=== PATIENT | male | born 2005 | race Caucasian/White ===

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

== ENCOUNTER 2023-03-25 17:36 | Emergency (ER) | payer MEDICAID, SELFPAY ==
[2023-03-25 17:40] VITALS: BP 140/78; PULSE 85; RESP 16; TEMP 36.6; O2SAT 99; BMI 23.5
[2023-03-25 17:52] VITALS: BP 144/67; PULSE 91; O2SAT 98
--- NOTE | 2023-03-25 18:19 | ED.VIS.CHEST ---
HPI History of Present Illness Chief Complaint: Chest Pain Narrative Narrative: 18-year-old male past medical history of bilateral central vision loss, legally blind, presents with left-sided chest pain that he has had over the last few days. He states his symptoms began on Friday, and were intermittent. It ranges from sharp and stabbing pain to dull and achy. Was present on Friday, Friday it may have been worse, and yesterday he states he was possibly pain-free, but today, began having constant, pleuritic chest pain on the left. It is nonradiating. He denies any tearing sensation or radiation to his back, jaw, or neck, or left arm. He denies any nausea or vomiting. No shortness of breath or diaphoresis. He denies DVT or PE risk factors. [facility] Medical History (Updated 03/25/23 @ 21:05 by Mendel Mason MD) Asthma Stargardts disease Home Medications albuterol sulfate 90 mcg/actuation aerosol inhaler (Proventil HFA) 2 puff inhalation Q6H 03/05/19 [History Last Taken Unknown] cetirizine 10 mg tablet (Zyrtec) 10 mg PO DAILY 03/05/19 [History Last Taken Unknown] diclofenac sodium 1 % topical gel (Voltaren) 4 g topical .QID PRN pain #100 grams 09/06/19 [Rx Last Taken Unknown] Allergy/AdvReac Type Severity Reaction Status Date / Time No Known Allergies Allergy Verified 03/25/23 17:37 Social History (Updated 05/28/19 @ 11:[address] Rodney Viveros, ) Smoking Status: Never smoker ROS ROS ED ROS Narrative Constitutional: No fever, no chills. HEENT: No sore throat. No neck pain. No loss of vision. No rhinorrhea. Cardiovascular: Left-sided pleuritic chest pain. No palpitations. No pedal edema. Respiratory: No cough, no shortness of breath. Abdominal: No abdominal pain. No nausea. No vomiting. Genitourinary: No dysuria. No hematuria. Musculoskeletal: No myalgias. No arthralgias. Neurologic: No headaches. No dizziness. No lightheadedness. Skin: No rash. No change in color. Psychiatric: No depression. No anxiety. EXAM Physical Exam Narrative Exam Narrative: Afebrile. Vital signs noted. HEENT: Normocephalic. Atraumatic. PERRL, EOMI. Neck soft and supple. No point tenderness or step off. Cardiovascular: Regular rate and rhythm. No murmurs, rubs, or gallops appreciated. No reproducible chest pain, no crepitance. Respiratory: No tachypnea. Lungs clear to auscultation bilaterally. Gastrointestinal: Abdomen soft, nontender, with normoactive bowel sounds. No rebound or guarding. Neurological: Awake. Alert. Nonfocal, nonlateralizing. Skin: No rash. Normal color. No pallor. Musculoskeletal: No pedal edema. Full range of motion extremities. Const Vital Signs: 03/25/23 17:40 03/25/23 17:52 03/25/23 18:31 Temperature 98 F Temperature Source Temporal Pulse Rate 85 91 Respiratory Rate 16 Blood Pressure 140/78 H 144/67 H Blood Pressure Mean 98 92 Pulse Ox 99 98 Oxygen Delivery Method Room Air Room Air Room Air 03/25/23 19:41 03/25/23 21:02 Temperature Temperature Source Pulse Rate 82 81 Respiratory Rate 17 20 H Blood Pressure 147/84 H 125/80 H Blood Pressure Mean 105 95 Pulse Ox 98 96 Oxygen Delivery Method Room Air Room Air Heart Score History: Slightly/Non-Suspicious ECG: Normal Age: </= 45 years Risk Factors: No Risk Factors Score: 0 MDM MDM MDM Narrative Medical decision making narrative: In the differential diagnosis is ACS versus pulmonary embolism versus aortic dissection. I have low suspicion for aortic dissection as he has no radiation to his back, he has equal pulses that are palpated, no tearing sensation. I will obtain an EKG to help rule out acute coronary syndrome/STEMI. Serial troponins will be performed along with chest x-ray to rule out pneumothorax and/or widened mediastinum. I have lower suspicion for pulmonary embolism as he is not hypoxic or tachycardic and he denies any DVT or PE risk factors. He is very active. I will obtain a D-dimer to screen him. I reviewed his prior ED visit and he did have chest pain of unknown etiology in 2019, few years ago. WBC count is normal at 10.7 in review of his laboratory work. He has normal hemoglobin of 15.5, platelet count normal at 361. D-dimer is negative at less than 0.27, electrolyte panel is grossly unremarkable. High-sensitivity troponin is 6. Repeat serial biomarker increased to 7 for a delta of 1. Chest x-ray interpreted by myself shows no acute process, no pneumothorax or infiltrate. I reviewed the radiology report which confirms my independent interpretation. At this point in time, while I am unsure as to the cause of his chest pain and pleuritic pain, I feel he can be discharged safely home with follow-up to his primary care provider. He was told to rest for the next few days and not exercise or lift weights. Return instructions to the emergency department were reviewed. I do not feel he requires observation. Disposition is discharged home in stable condition. History & Record Review Discussion w/independent historian: Patient and Family Additional record(s) reviewed:: Prior ED visit Lab Data Attestation: I reviewed the patient's lab results. Labs: Laboratory Results - last 24 hr 03/25/23 03/25/23 03/25/23 17:50 17:50 17:50 WBC 10.7 RBC 5.05 Hgb 15.5 Hct 46.8 MCV 92.7 MCH 30.7 MCHC 33.1 RDW Std Deviation 42.8 RDW Coeff of Venessa 12.6 Plt Count 361 MPV 10.4 Immature Gran % (Auto) 0.400 Neut % (Auto) 70.1 H Lymph % (Auto) 18.7 L [place] % (Auto) 9.0 Eos % (Auto) 1.4 Baso % (Auto) 0.4 Absolute Neuts (auto) 7.5 Absolute Lymphs (auto) 1.99 Nucleated RBC % 0 D-Dimer Quant (PE/DVT) < 0.27 L Sodium 141 Potassium 3.9 Chloride 107 Carbon Dioxide 28.0 Anion Gap 6 BUN 18 Creatinine 1.08 Estim Creat Clear Calc 116.20 Est GFR (MDRD) Af Amer 112 Est GFR (MDRD) Non-Af 93 BUN/Creatinine Ratio 16.7 Glucose 90 Calcium 9.5 Troponin I High Sens 6 03/25/23 20:00 WBC RBC Hgb Hct MCV MCH MCHC RDW Std Deviation RDW Coeff of Venessa Plt Count MPV Immature Gran % (Auto) Neut % (Auto) Lymph % (Auto) [place] % (Auto) Eos % (Auto) Baso % (Auto) Absolute Neuts (auto) Absolute Lymphs (auto) Nucleated RBC % D-Dimer Quant (PE/DVT) Sodium Potassium Chloride Carbon Dioxide Anion Gap BUN Creatinine Estim Creat Clear Calc Est GFR (MDRD) Af Amer Est GFR (MDRD) Non-Af BUN/Creatinine Ratio Glucose Calcium Troponin I High Sens 7 Radiography Diagnostic Testing: Clinical Impression(s) from Imaging Studies Chest X-Ray 03/25/23 18:39 IMPRESSION: No radiographic evidence of acute cardiopulmonary disease. Electronically Signed: Aroldo Echavarria MD at 18:52 EDT , Discharge Plan Triage Chief Complaint: Chest Pain ED Provider: Mendel Mason Dx/Rx/DC Orders Clinical Impression: Chest pain of unknown etiology, Pleuritic pain Instructions: ED Chest Pain, Uncertain Cause Prescriptions: No Action cetirizine [Zyrtec] 10 mg tablet 10 mg PO DAILY albuterol sulfate [Proventil HFA] 90 mcg/actuation HFA aerosol inhaler 2 puff INHALATION Q6H diclofenac sodium [Voltaren] 1 % gel 4 g TOPICAL .QID PRN (Reason: pain) Qty: 100 0RF Rx Instructions: Apply 4 g to the affected area 4 times daily as needed pain Primary Care Provider: Kwan Trinidad Referrals: Denisse Brenner MD [Non-Staff] - 3-5 Days if not improving Disposition Disposition: Home, Self Care
[2023-03-25] MEDS: Aspirin 81 MG TAB.CHEW 324 MG PO (18:31)
[2023-03-25] MEDS: 0.9% Normal Saline 1,000 ML 1000 ML IV (18:37)
--- NOTE | 2023-03-25 18:39 | RAD_ITS ---
INDICATION: Chest pain EXAMINATION/TECHNIQUE: X-RAY - XR Chest 1 View COMPARISON: 03/06/2019 FINDINGS: LUNGS: No consolidation, edema or effusion. No pneumothorax. MEDIASTINUM AND CARDIOVASCULAR STRUCTURES: Cardiac silhouette not enlarged. Central airways and mediastinal contour are unremarkable. RAD/Chest 1 View (Portable) IMPRESSION: No radiographic evidence of acute cardiopulmonary disease. Electronically Signed: Aroldo Echavarria MD at 18:52 EDT ,
[2023-03-25 18:47] LABS: Absolute Lymphocyte Count 1.99 X10^3/uL (0.83-4.51); Absolute Neutrophil Count 7.5 X10^3/uL (2.0-7.7); Basophil# 0.04 X10^3/uL; Basophil% 0.4 % (0-1); Eosinophil# 0.15 X10^3/uL; Eosinophils% 1.4 % (0-5); Hematocrit 46.8 % (40-54); Hemoglobin 15.5 g/dL (13.0-16.5); Lymphocyte # 1.99 X10^3/ul (0.83-4.51); Lymphocyte % 18.7 % (19-41); Mean Corp Hgb Conc 33.1 g/dL (32-36); Mean Corpuscular Hgb 30.7 pg (27.0-32.0); Mean Corpuscular Volume 92.7 fL (80-94); Mean Platelet Vol. 10.4 fl (6.2-12.0); Monocyte# 0.96 X10^3/uL; NRBC Flagged by Analyzer 0 % (0-5); Neutrophil # 7.49 X10^3/uL (2.7-7.7); Neutrophil % 70.1 % (47-70); Platelet Count 361 K/mm3 (150-450); RBC Distribution Width CV 12.6 % (11.6-14.6); RBC Distribution Width SD 42.8 fl (35.1-43.9); Red Blood Count 5.05 M/mm3 (4.6-6.2); White Blood Count 10.7 K/mm3 (4.4-11.0)
[2023-03-25 19:06] LABS: Anion Gap 6 (5-15); BUN 18 mg/dL (7-18); BUN/Creat Ratio 16.7 RATIO (10-20); Calcium,Total 9.5 mg/dL (8.5-10.1); Chloride 107 mmol/L (98-107); Creatinine, Serum 1.08 mg/dL (0.70-1.30); EST Glomerular Filtration Rate 93 mL/min (>60); Est Glom Filt Rate - Afr Amer 112 mL/min (>60); Glucose 90 mg/dL (74-106); Potassium 3.9 mmol/L (3.5-5.1); Sodium Level 141 mmol/L (136-145); Troponin-I HS (w/2H Reflex) 6 pg/mL (3.0-78.0)
[2023-03-25 19:23] LABS: D-Dimer Quantitative (DVT/PE) < 0.27 FEU/ug/m (0.27-0.49)
[2023-03-25 19:41] VITALS: BP 147/84; PULSE 82; RESP 17; O2SAT 98
[2023-03-25 20:25] LABS: Reflex Troponin-HS? (from REC) Y
[2023-03-25 20:46] LABS: Troponin-I HS 7 pg/mL (3.0-78.0)
[2023-03-25 21:02] VITALS: BP 125/80; PULSE 81; RESP 20; O2SAT 96
== END 2023-03-25 21:29 | disposition home or self-care (01) ==
PROVIDERS: Emergency Provider Emergency Medicine; PCP Pediatrics; Visit Provider Emergency Medicine
DX: R07.81 Pleurodynia (principal); J45.909 Unspecified asthma, uncomplicated; Z79.899 Other long term (current) drug therapy
CPT/HCPCS: 71045; 80048; 84484; 85025; 85379; 93005; 96360; 96361; 99283; J7030; A4216

== ENCOUNTER 2023-06-10 07:45 | Outpatient (RCR) | payer MEDICAID, SELFPAY ==
--- NOTE | 2023-06-10 08:55 | HP.PTEVAL_ITS ---
Patient's Visit Information Visit Information Visit Information: ANTONIETTA HUNG is a 18 year old M referred to Physical Therapy by DHARMESH Em with a diagnosis of Lumbar spine pain w/o sciatica and L shoulder pain. Date of Evaluation: 06/10/23 Physical Therapist: Sundeep Borja DPT Visit Plan Frequency: 2x /Week Duration: 6 Weeks Plan: Start with upper lumbar mobilizations grade III/IV. Progress to neutral spine core stability and lumbar extensor strengthening. Progress to dynamic activities as tolerated. Subjective Subjective: Pt. is here today for his initial evaluation with diagnosis of low back pain without sciatica and L shoulder pain. He reports that his shoulder is now better, but his back is still bothering him. He reports no mech of injury. No history of back pain. He reports lifting does seem to make it worse. It feels like there is some rubbing in my back when I lie back to lifting. He tried to work through lifting, but has held off for a few weeks now. Sleeping is generally okay. Mornings are generally okay. Symptoms seem to be constant 2-3/10 range with intermittent increase in symptoms. No change in LE strength, no radicular symptoms. No saddle region pain. No xrays yet, but is planning to have them done some time this week. pt. works at [employer] and has some lifting and walks ~14 miles per day. He reports pain has been progressively getting worse over the past few months, but most prominent in the last month. Pt. would like to get back to all work and lifting activities without limitations. Pain L shoulder: Pain Intensity (Out of 10): 0 Lumbar spine: Pain Intensity (Out of 10): 2 Pain Intensity Range: 7 Comment: L side Objective Objective: POSTURE: pt. has fairly decent posture, no later shift noted. Pt. has no major increase in lordosis or loss. PALPATION: Pt. has most tenderness at L2/L3 region of lumbar spine. No major pain along erector spinae, but seem to be more central. Spring testing hypomobile throughout PAs L2-L5. Hypomobile with lateral glides as well. NEURO: Normal sensation and DTR of BLEs. ROM: LUMBAR SPINE: Pt. has full motion of lumbar spine, but is less mobile through upper lumbar spine and tends to get all of his extension throughout his lower lumbar spine. Pt. has normal B Hip ROM no increase in symptoms. Tight HS noted bilaterally. MMT: 5/5 strength throughout BLEs. Trunk: flexion 4+/5, extension 4+/5. GAIT: normal gait pattern noted. Special Tests L/S Slump test left side: Negative L/S Slump test right side: Negative L/S Left Straight Leg Raise: Negative L/S Right Straight Leg Raise: Negative L/S Instability PA Test: Negative L/S [place] Instability Test: Negative Lumbar Standing: Flexion - Mechanical Response: No effect Lumbar Standing: Flexion - Symptoms During Testing: No effect Lumbar Standing: Flexion - Symptoms After Testing: No effect Lumbar Standing: Extension - Mechanical Response: No effect Lumbar Standing: Extension - Symptoms During Testing: Increases Lumbar Standing: Extension - Symptoms After Testing: No worse Lumbar Standing: Right Side Glides - Mechanical Response: No effect Lumbar Standing: Right Side [place] - Symptoms During Testing: No effect Lumbar Standing: Right Side [place] - Symptoms After Testing: No effect Lumbar Standing: Left Side [place] - Mechanical Response: No effect Lumbar Standing: Left Side [place] - Symptoms During Testing: No effect Lumbar Standing: Left Side [place] - Symptoms After Testing: No effect Lumbar Lying: Flexion - Mechanical Response: No effect Lumbar Lying: Flexion - Symptoms During Testing: No effect Lumbar Lying: Flexion - Symptoms After Testing: No effect Lumbar Lying: Extension - Mechanical Response: No effect Lumbar Lying: Extension - Symptoms During Testing: Increases Lumbar Lying: Extension - Symptoms After Testing: No worse Lumbar Static: Slouched Sit - Mechanical Response: No effect Lumbar Static: Slouched Sit - Symptoms During Testing: No effect Lumbar Static: Slouched Sit - Symptoms After Testing: No effect Lumbar Static: Sitting Erect - Mechanical Response: No effect Lumbar Static: Sitting Erect - Symptoms During Testing: No effect Lumbar Static: Sitting Erect - Symptoms After Testing: No effect Lumbar Static:Lying Prone in Extension - Mechanical Response: No effect Lumbar Static: Lying Prone in Extension - Sx During Testing: Decreases Lumbar Static: Lying Prone in Extension - Sx After Testing: No better Balance/Special Test Scores Oswestry Low Back Score: 9 Goals Goal 1:: LTG: Pt. to be I with HEP for core stability. Goal Time Frame: 4-6 Weeks Goal 2:: STG: Pt. to have 0/10 pain in lumbar spine with all walking. Goal Time Frame: 2 Weeks Goal 3:: LTG: pt. to complete all work and recreational activities without increase in lumbar spine pain. Goal Time Frame: 4-6 Weeks Goal 4:: LTG: Pt. to have increased trunk flexion and extension strength to 5/5 throughout. Goal Time Frame: 4-6 Weeks Goal 5:: LTG: Pt. to have an improved back oswestry score to 0% diability. Goal Time Frame: 4-6 Weeks Rehabilitation Potential Physical Therapy Diagnosis: Pt. has signs and symptoms consistent with lumbar spine pain. His L shoulder pain has abolished. He has some loss of extension at upper lumbar spine, hypomobility noted with segmental extension in upper lumbar spine as well. He has tight HS contributing to slightly posterior pelvic tilted position (slightly). Pt. has some trunk flexion and extension weakness as well. He does report some rubbing, possible instability. Pt. would benefit from PT to increase core stability in order to get back to all work and recreational activities without limitations. Rehabilitation Potential: Excellent Anticipated Interventions Patient/Client Instruction: Educate patient on: Condition, Plan of Care, Risk Factors and Benefits of Fitness Program For the Purpose of:: To foster healthy habits, To improve decision making, To facilitate caregiver knowledge, To improve self management, To prevent re-injury and To improve ability to perform tasks related to life management Therapeutic Exercise to Include: Strength training, Power training, Postural training, Flexibilty training and Dynamic Lumbar Stabilization For the Purpose of:: To decrease pain, To increase ROM, To improve nutrient delivery to tissue, To increase oxygenation perfusion, To improve muscle performance and motor function, To improve ability to perform ADL's, To increase tolerance to activity/condition/position, To improve ability of physical actions for home/community/work/leisure, To improve gait and locomotor functions and To improve health of tissue Manual Therapy Techniques to Include: Mobilization For the Purpose of:: To increase ROM, To improve nutrient delivery to tissue, To increase oxygenation perfusion, To improve muscle performance and motor function, To improve health of tissue, To decrease soft tissue restriction and To increase flexibility/ROM Text: Thank you for the opportunity to evaluate your patient. For Medicare and Medicare HMO plans, please review the plan of care and approve it. It will need to be FAXED BACK to us at [phone] for Medicare purposes. For Medicare only, by signing this I certify the plan of care. Please let me know if there are questions or concerns regarding this plan of care. Physician Signature:_ Date:
== END 2023-06-10 19:00 | disposition home or self-care (01) ==
LOC: PT 07:45
PROVIDERS: PCP Pediatrics; Referring Provider Nurse Practitioner Family; Visit Provider Nurse Practitioner Family
DX: M54.50 Low back pain, unspecified (principal); M25.512 Pain in left shoulder
CPT/HCPCS: 97110; 97161

== ENCOUNTER → 2023-11-03 | Outpatient (CLI) | payer MEDICAID, SELFPAY ==
--- NOTE | 2023-11-03 12:47 | RAD_ITS ---
STUDY: X-RAY CHEST REASON FOR EXAM: Male, 18 years old. Chondrocostal junction syndrome [Tietze] TECHNIQUE: Frontal and lateral views of the chest. COMPARISON: March 25, 2023 FINDINGS: Lungs are hyperaerated. The lungs are clear and expanded. There is no demonstrated pleural abnormality. Normal size heart. Normal mediastinum and kostas. Normal visualized pulmonary arteries. Normal visualized aortic arch and descending thoracic aorta. Normal visualized thoracic spine. Normal visualized ribs, clavicles, and shoulders. There is no demonstrated abnormality of the visualized soft tissue structures of the upper abdomen. RAD/Chest PA and Lateral IMPRESSION: Probable small airways disease Electronically Signed: Ted Mcclure MD at 16:56 EST ,
== END | disposition home or self-care (01) ==
LOC: MTRAD 12:46
PROVIDERS: PCP Pediatrics; Referring Provider Pediatrics; Visit Provider Pediatrics
DX: M94.0 Chondrocostal junction syndrome [Tietze] (principal)
CPT/HCPCS: 71046

== ENCOUNTER 2024-01-02 08:30 | Outpatient (RCR) | payer MEDICAID, SELFPAY ==
--- NOTE | 2023-11-07 07:58 | HP.PTEVAL_ITS ---
Patient's Visit Information Visit Information Visit Information: ANTONIETTA HUNG is a 18 year old M referred to Physical Therapy by Dr. Kwan Trinidad MD with a diagnosis of REPETITIVE STRAIN OF LOWER BACK. Date of Evaluation: 11/07/23 Physical Therapist: Jose M Fleming PT, Cert MDT, OCS Visit Plan Frequency: 2x /Week Duration: 4 Weeks Plan: PT INTERVETIONS CONNOR EX'S FOR ROM,POSTURAL EX'S ,DLS AND FUNCTIONAL STRENGTHENING Subjective Subjective: This 18 y/o male presents to physical therapy with lumbar pain. Patient has had lumbar pain since May 2023. Seen Dr and recommend PT and had x- rays. Patient pain located symmetrical lumbar. Aggravating factors lifting ,sitting ,bending . Alleviating factors walking and standing. Denies paresthesia/tingling Bowel/bladder -.Coughing /sneezing -.Patient sleeping good. No medication . Patient has had PT for knees and one time lumbar. Patient condition affects QOL and Activities. Patient goals to decrease pain. VOCATION: umeployed SOCIAL: lives with family Pain Bilateral Back: Pain Intensity (Out of 10): 7 Pain Intensity Range: 10 Objective Objective: POSTURE: reduced lordosis ,rounded shoulders head forward NUERO: denies paresthesia/tingling ,reflexes L3-4.L4-5,L5-S1 2/3 FLEXABIITY: hamstrings mod tight MMT: quads/hams/hip/ankle 5/5 LUMBAR ROM: flexion mod loss ,extension min loss ,side glides min loss Special Tests L/S Slump test left side: Negative L/S Slump test right side: Negative L/S Left Straight Leg Raise: Negative L/S Right Straight Leg Raise: Negative Lumbar Standing: Flexion - Mechanical Response: No effect Lumbar Standing: Flexion - Symptoms During Testing: Increases Lumbar Standing: Flexion - Symptoms After Testing: Worse Lumbar Standing: Extension - Mechanical Response: No effect Lumbar Standing: Extension - Symptoms During Testing: Increases Lumbar Standing: Extension - Symptoms After Testing: No worse Lumbar Standing: Right Side Glides - Mechanical Response: No effect Lumbar Standing: Right Side [place] - Symptoms During Testing: No effect Lumbar Standing: Right Side [place] - Symptoms After Testing: No effect Lumbar Standing: Left Side [place] - Mechanical Response: No effect Lumbar Standing: Left Side [place] - Symptoms During Testing: No effect Lumbar Standing: Left Side [place] - Symptoms After Testing: No effect Lumbar Lying: Flexion - Mechanical Response: No effect Lumbar Lying: Flexion - Symptoms After Testing: No worse Lumbar Lying: Extension - Mechanical Response: No effect Lumbar Lying: Extension - Symptoms During Testing: Increases Lumbar Lying: Extension - Symptoms After Testing: No worse Balance/Special Test Scores Oswestry Low Back Score: 18 Goals Goal 1:: Patient to be I with HEP for back Goal Time Frame: 4-6 Weeks Goal 2:: Patient to improve posture/body mechanics 80% of the time Goal Time Frame: 4-6 Weeks Goal 3:: Patient to improve lumbar ROM for function of recovery for lifting Goal Time Frame: 4-6 Weeks Goal 4:: Patient to demonstrate 60% improvement with function and less pain Goal Time Frame: 4-6 Weeks Goal 5:: Patient to improve back oswestry score by 5 points to improve QOL and function Goal Time Frame: 4-6 Weeks Rehabilitation Potential Physical Therapy Diagnosis: This patient has low back pain with postural dysfunction with decrease ROM lumbar ,pain with positioning and motion testing thus benefit from skilled PT Rehabilitation Potential: Good Anticipated Interventions Patient/Client Instruction: Educate patient on: Condition and Plan of Care For the Purpose of:: To decrease pain, To increase ROM, To improve muscle performance and motor function, To improve ability to perform ADL's, To increase tolerance to activity/condition/position, To improve ability of physical actions for home/community/work/leisure, To improve health of tissue, To decrease soft tissue restriction, To increase flexibility/ROM and To improve tolerance to ADL's Therapeutic Exercise to Include: Strength training, Body mechanics, Postural training, Flexibilty training and Dynamic Lumbar Stabilization For the Purpose of:: To decrease pain, To increase ROM, To improve muscle performance and motor function, To increase tolerance to activity/condition/position, To improve ability of physical actions for home/community/work/leisure, To improve health of tissue, To decrease soft tissue restriction, To increase flexibility/ROM and To reduce risk of recurrence TENS: Yes IF ES: Yes Cryotherapy (ice pack, ice massage): Yes Thermo therapy (hot pack): Yes Ultrasound (thermal/non thermal): Yes For the Purpose of:: To decrease pain, To decrease swelling/inflammation, To increase ROM, To improve health of tissue and To decrease soft tissue restriction Text: Thank you for the opportunity to evaluate your patient. For Medicare and Medicare HMO plans, please review the plan of care and approve it. It will need to be FAXED BACK to us at [phone] for Medicare purposes. For Medicare only, by signing this I certify the plan of care. Please let me know if there are questions or concerns regarding this plan of care. Physician Signature: Date:
--- NOTE | 2024-01-02 08:55 | HP.PTDCSUM ---
Discharge Summary D/C summary: It has been my pleasure to treat ANTONIETTA HUNG referred by Dr. Kwan Trinidad MD, with the diagnosis of REPETITIVE STRAIN OF LOWER BACK for a total of 12 visit(s). Discharge Date: 01/02/24 Please see the following information for a summary of their discharge status. Subjective Subjective: Doing well ready for d/c Pain Bilateral Back: Pain Intensity (Out of 10): 0 Overall Improvement % Improvement: 80 Objective Objective/Function: reduced lordosis ,rounded shoulders head forward NUERO: denies paresthesia/tingling ,reflexes L3-4.L4-5,L5-S1 2/3 FLEXABIITY: hamstrings min tight MMT: quads/hams/hip/ankle 5/5 LUMBAR ROM: flexion WFL ,extension ,side glides WFL Goals Goal 1:: Patient to be I with HEP for back Goal Progress: Goal Met Goal 2:: Patient to improve posture/body mechanics 80% of the time Goal Progress: Goal Met Goal 3:: Patient to improve lumbar ROM for function of recovery for lifting Goal Progress: Goal Met Goal 4:: Patient to demonstrate 60% improvement with function and less pain Goal Progress: Goal Met Goal 5:: Patient to improve back oswestry score by 5 points to improve QOL and function Goal Progress: Goal Met Plan Plan: D/C D/C Information Discharge Comments: HEP d/c sentence: If there are questions or concerns regarding this patient's physical therapy, please feel free to call me at [phone]. Thank you for the referral of this patient. Sincerely, Jose M Fleming, PT, Cert MDT, OCS Balance/Gait/Functional tests Balance/Special Test Scores Oswestry Low Back Score: 3 Improvement % Improvement: 80
== END 2024-01-02 13:40 | disposition home or self-care (01) ==
LOC: PT 08:30
PROVIDERS: PCP Pediatrics; Referring Provider Pediatrics; Visit Provider Pediatrics
DX: S39.012D Strain of muscle, fascia and tendon of lower back, subsequent encounter (principal); X50.3XXD Overexertion from repetitive movements, subsequent encounter
CPT/HCPCS: 97110; 97162

== ENCOUNTER 2024-02-08 14:00 | Emergency (ER) | payer MEDICAID, SELFPAY ==
[2024-02-08 14:02] VITALS: BP 122/75; PULSE 96; RESP 14; TEMP 36.2; O2SAT 97; BMI 22.5
--- NOTE | 2024-02-08 14:27 | EX.ED.GENINJ ---
HPI <VIRGIE Blackman - Last Filed: 02/08/24 14:49> History of Present Illness Chief Complaint: Laceration Narrative Narrative: 19-year-old male was wearing sunglasses and playing basketball when he bumped heads with his brother. He has a left eyebrow laceration. No LOC. No blood thinners. He denies headache, visual changes, or nausea or vomiting. Tetanus is up-to-date. PFSH <VIRGIE Blackman - Last Filed: 02/08/24 14:49> [facility] Medical History (Updated 02/08/24 @ 14:30 by VIRGIE Blackman) Asthma Stargardts disease Home Medications albuterol sulfate 90 mcg/actuation aerosol inhaler (Proventil HFA) 2 puff inhalation Q6H 03/05/19 [History Last Taken Unknown] cetirizine 10 mg tablet (Zyrtec) 10 mg PO DAILY 03/05/19 [History Last Taken Unknown] diclofenac sodium 1 % topical gel (Voltaren) 4 g topical .QID PRN pain #100 grams 09/06/19 [Rx Last Taken Unknown] Allergy/AdvReac Type Severity Reaction Status Date / Time No Known Allergies Allergy Verified 02/08/24 14:02 Social History (Updated 05/28/19 @ 11:[address] Rodney Viveros, ) Smoking Status: Never smoker ROS <VIRGIE Blackman - Last Filed: 02/08/24 14:49> ROS ED ROS Narrative Eyes: Negative for visual change. GI: Negative for nausea, vomiting. Neuro: Negative for headache, motor/sensory dysfunction. Skin: Positive for wound. EXAM <VIRGIE Blackman - Last Filed: 02/08/24 14:49> Physical Exam Narrative Exam Narrative: CONST: Patient sitting in no acute distress. EYES: Normal inspection. PERRL, EOMI. ENT: 2.5 cm linear superficial laceration and left lateral eyebrow, no raccoon eyes or osullivan sign, no hemotympanum, no nasal septal hematoma, no CSF otorrhea or rhinorrhea. NECK: Normal inspection. RESP: No respiratory distress, CTAB. CVS: Regular rate and rhythm, no murmur, no gallop. SKIN: Color normal, no rash, warm, dry, intact. EXTREMITIES: Normal appearance, no pedal edema. NEURO: Oriented x4. PSYCH: Normal affect. Const Vital Signs: 02/08/24 14:02 Temperature 97.2 F L Temperature Source Temporal Pulse Rate 96 Respiratory Rate 14 Blood Pressure 122/75 H Blood Pressure Mean 90 Pulse Ox 97 Oxygen Delivery Method Room Air <Dr. Minerva Talavera DO - Last Filed: 02/08/24 15:09> Physical Exam Const Vital Signs: 02/08/24 14:02 Temperature 97.2 F L Temperature Source Temporal Pulse Rate 96 Respiratory Rate 14 Blood Pressure 122/75 H Blood Pressure Mean 90 Pulse Ox 97 Oxygen Delivery Method Room Air MDM <VIRGIE Blackman - Last Filed: 02/08/24 14:49> [facility] Narrative Medical decision making narrative: History gathered from: Patient and mom Patient bumped heads while playing basketball. There is a superficial 2.5 cm laceration in his left eyebrow. After thoroughly cleansing it it does not gape open and there is no active bleeding. There is no facial bony tenderness or signs of basilar skull fracture no indication for CT scan. Wound was cleansed and closed with skin glue. His tetanus is already up-to-date. He was given wound care instructions and discharged in stable condition. <Dr. Minerva Talavera, - Last Filed: 02/08/24 15:09> [facility] Narrative Medical decision making narrative: History gathered from: Patient and mom Patient bumped heads while playing basketball. There is a superficial 2.5 cm laceration in his left eyebrow. After thoroughly cleansing it it does not gape open and there is no active bleeding. There is no facial bony tenderness or signs of basilar skull fracture no indication for CT scan. Wound was cleansed and closed with skin glue. His tetanus is already up-to-date. He was given wound care instructions and discharged in stable condition. I have personally performed a face to face assessment of the patient and have reviewed the ANUSHA Note. I performed a substantive portion of the visit including all aspects of the following. My vee findings include: History is [patient presents with laceration to his left eyebrow. Patient states he was playing basketball with his brother when they collided heads. Patient was wearing glasses. He sustained a laceration to his eyebrow. His glasses did not break. He is up-to-date on tetanus. He denies any visual changes. There is no loss of consciousness. He denies neck pain.] Exam is [HEENT-PERRLA, EOMI. Cranial nerves II through XII grossly intact. TMs clear. Mucous membranes moist. No adenopathy. Patient with 2.5 cm laceration to his left eyebrow without significant bleeding. No real bony tenderness on or around his orbit. Extraocular muscle movement is normal and painless. Cardiovascular-regular rate and rhythm without murmur or ectopy Lungs-clear to auscultation, chest wall stable without crepitus or subcu emphysema Abdomen-normoactive bowel sounds, soft, nontender, no rebound or rigidity, no peritoneal signs. Extremities-intact ?4, normal range of motion, normal pulses, atraumatic] Medical Decison Making [patient was seen with physician virtual assistant for [employer]. I felt the laceration was amenable to Dermabond repair. PA performed procedure with Dermabond and had good wound edge approximation with good hemostasis. Advised to return if increasing pain, redness, swelling, purulent drainage, or condition should worsen anyway.] Other additions or changes: [None] Discharge Plan Triage Chief Complaint: Laceration ED Midlevel Provider: Jayashree Cole ED Provider: Minerva Talavera Dx/Rx/DC Orders Clinical Impression: Laceration of eyebrow, left Instructions: ED Laceration, Face: Skin Glue Prescriptions: No Action cetirizine [Zyrtec] 10 mg tablet 10 mg PO DAILY albuterol sulfate [Proventil HFA] 90 mcg/actuation HFA aerosol inhaler 2 puff INHALATION Q6H diclofenac sodium [Voltaren] 1 % gel 4 g TOPICAL .QID PRN (Reason: pain) Qty: 100 0RF Rx Instructions: Apply 4 g to the affected area 4 times daily as needed pain Primary Care Provider: Kale Avalos Referrals: Kwan Trinidad MD [Non-Staff -Ordering Privileges] - Activity Restrictions/Additional Instructions: You can shower as normal. Do not put any ointments or anything over the skin glue. It should fall off on its own in 5 to 10 days. Disposition Disposition: Home, Self Care Discharge Date/Time: 02/08/24 15:06
--- OUTSIDE RECORDS SUMMARY | 2024-02-08 14:37 | XMS RPT_ITS | CCD ---
Author Name Unknown Address [address] [place] [address] Organization [facility] Care Team Providers Care [employer]drop[employer] Grower Name Role Phone Hasmukh Garcia Primary Care Provider HASMUKH GARCIA Primary Care Unavailable HASMUKH GARCIA Primary Care Unavailable SHANEKA TONG Attending Unavailable HASMUKH GARCIA Primary Care Unavailable RADHA FLORES Attending Unavailable HASMUKH GARCIA Primary Care Unavailable HASMUKH GARCIA Primary Care Unavailable HASMUKH GARCIA Primary Care Unavailable MARYANA ROBERTS II Attending UnavailCrispin Siu MD Primary Care Provider CRISPIN TRINIDAD Primary Care Unavailable JUANITA ESCOBAR Attending Unavailable REFERRED, SELF Referring Unavailable CRISPIN TRINIDAD Primary Care Unavailable CRISPIN TRINIDAD Attending Unavailable REFERRED, SELF Referring Unavailable CRISPIN TRINIDAD Primary Care Unavailable CRISPIN TRINIDAD Attending Unavailable CRISPIN TRINIDAD Referring Unavailable ADITI LANIER Attending Unavailable CRISPIN TRINIDAD Primary Care Unavailable REFERRED, SELF Referring Unavailable Allergies Allergy Classification Reported Allergen(s) Allergy Type Date of Onset Reaction(s) Facility (7 sources) Cat; Translations: [CATS] Propensity to adverse reactions 2 Intolerance [facility] (7 sources) Dog; Translations: [DOGS] Propensity to adverse reactions 2 Intolerance [facility] (7 sources) Seasonal allergy; Translations: [SEASONAL ALLERGIES] Propensity to adverse reactions 2 Intolerance [facility] (8 sources) Wheat gluten extract; Translations: [GLUTEN] Drug Allergy 2 Vomiting, Nausea And Vomiting [facility] (2 sources) Lactase; Translations: [TILACTASE] Drug Allergy 3 Nausea And Vomiting [facility] (2 sources) Eggs Or Egg-Derived Products; Translations: [EGGS OR EGG-DERIVED PRODUCTS] Drug Allergy 3 Nausea And Vomiting [facility] (1 source) GLUTEN MEAL; Translations: [GLUTEN MEAL] Propensity to adverse reactions to drug (disorder) 3 [facility] Repository Medications Current Medications Medication Drug Class(es) Dates Sig (Normalized) Sig (Original) [id number] 200 actuat albuterol 0.09 mg/actuat metered dose inhaler (8 sources) beta2-Adrenergic Agonist Start: 07-13-2020 take 2 puff(s) by inhalation every four hours as needed for cough albuterol 108 (90 Base) MCG/ACT inhaler Inhale 2 Puffs into the lungs every 4 hours as needed for Wheezing, Shortness of Breath or Cough 18 g 2 07/13/2020 Active Completed/Discontinued Medications Medication Drug Class(es) Dates Sig (Normalized) Sig (Original) lidocaine hydrochloride 0.035 mg/mg ophthalmic gel (1 source) Antiarrhythmic, Amide Local Anesthetic Start: 07-22-2023 End: 07-22-2023 lidocaine (PF) 3.5 % 1 Drop (AKTEN) MULTIVITAMIN ORAL (6 sources) MULTIVITAMIN ORA L Take by mouth. 0 Active Problems Active Problems Problem Classification Problem Date Documented Date Episodic/Chronic Asthma (1 source) Asthma; Translations: [Unspecified asthma, uncomplicated] Onset: 01-29-2010 01-16-2023 Chronic Developmental disorders (1 source) Disorder of speech and language development; Translations: [Other developmental disorders of speech and language] Onset: 09-14-2010 02-14-2013 Chronic Inflammation; infection of eye (except that caused by tuberculosis or sexually transmitteddisease) (2 sources) Acute conjunctivitis of left eye; Translations: [Unspecified acute conjunctivitis, left eye] 07-21-2023 Episodic Joint disorders and dislocations; trauma-related (1 source) Patellofemoral syndrome of bilateral knees; Translations: [Patellofemoral disorders, right knee] Onset: 07-05-2021 07-05-2021 Chronic Nonspecific chest pain (1 source) Chest pain; Translations: [Other chest pain] 12-08-2023 Episodic Other and unspecified benign neoplasm (1 source) Nevus of conjunctiva; Translations: [Benign neoplasm of right conjunctiva] Episodic Other upper respiratory disease (1 source) Allergic rhinitis; Translations: [Allergic rhinitis, unspecified] Onset: 05-19-2008 01-16-2023 Chronic Other upper respiratory infections (2 sources) Chronic sinusitis, unspecified; Translations: [Unspecified sinusitis (chronic)] 10-03-2023 Chronic Other upper respiratory infections (1 source) Sore throat symptom; Translations: [Acute pharyngitis, unspecified] 10-03-2023 Episodic Retinal detachments; defects; vascular occlusion; and retinopathy (3 sources) Stargardt's disease; 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] Onset: 02-08-2016 Chronic Past or Other Problems Problem Classification Problem Date Documented Da te Episodic/Chronic Other non-traumatic joint disorders (1 source) Joint pain; Translations: [Pain in unspecified joint] Onset: 06-27-2021 06-27-2021 Episodic Results Test Name Value Interpretation Reference Range Facil ity Vital Signs Date Time Vital Sign Value Performing Clinician Faci lity 10-17-2023 07:47-0500 Body temperature 97.59 [degF] Roro Campbell MULTIMEDIA AUTHORING SPECIALIST.[employer] Work Phone: [facility] 10-17-2023 07:47-0500 Body weight 74.84 kg Roro Campbell MULTIMEDIA AUTHORING SPECIALIST.[employer] Work Phone: [facility] 10-17-2023 07:47-0500 Diastolic blood pressure 76 mm[Hg] Roro Campbell MULTIMEDIA AUTHORING SPECIALIST.[employer] Work Phone: [facility] 10-17-2023 07:47-0500 Heart rate 76 /min Roro Campbell MULTIMEDIA AUTHORING SPECIALIST.[employer] Work Phone: [facility] 10-17-2023 07:47-0500 Respiratory rate 21 /min Roro Campbell APRN.[employer] Work Phone: [facility] 10-17-2023 07:47-0500 SaO2% (BldA) [Mass fraction] 98 % Roro Campbell MULTIMEDIA AUTHORING SPECIALIST.[employer] Work Phone: [facility] 10-17-2023 07:47-0500 Systolic blood pressure 120 mm[Hg] Roro Campbell MULTIMEDIA AUTHORING SPECIALIST.[employer] Work Phone: [facility] 10-03-2023 09:02-0500 Body temperature 97.3 [degF] Ginette Salguero APRN.SUPERINTENDENT [employer] Work Phone: [facility] 10-03-2023 09:02-0500 Body weight 73.48 kg Ginette Salguero APRN.[employer] Work Phone: [facility] 10-03-2023 09:02-0500 Diastolic blood pressure 82 mm[Hg] Ginette Salguero APRN.[employer]END[employer] Work Phone: [facility] 10-03-2023 09:02-0500 Heart rate 85 /min Ginette Salguero APRN.[employer] Work Phone: [facility] 10-03-2023 09:02-0500 Respiratory rate 18 /min Ginette Salguero APRN.[employer]END[employer] Work Phone: [facility] 10-03-2023 09:02-0500 SaO2% (BldA) [Mass fraction] 97 % Ginette Salguero APRN.[employer] Work Phone: [facility] 10-03-2023 09:02-0500 Systolic blood pressure 117 mm[Hg] Ginette Salguero APRN.SUPERINTENDENT [employer]ERS Work Phone: [facility] 07-21-2023 09:16-0400 Body temperature 97.5 [degF] Thad Spencer APRN.SUPERINTENDENT [employer] Work Phone: [facility] 07-21-2023 09:16-0400 Body weight 70.76 kg Thad Spencer APRN.SUPERINTENDENT [employer] Work Phone: [facility] 07-21-2023 09:16-0400 Diastolic blood pressure 64 mm[Hg] Thad Spencer APRN.[employer] Work Phone: [facility] 07-21-2023 09:16-0400 Heart rate 72 /min Thad Spencer APRN.[employer] Work Phone: [facility] 07-21-2023 09:16-0400 Respiratory rate 16 /min Thad Spencer APRN.[employer] Work Phone: [facility] 07-21-2023 09:16-0400 SaO2% (BldA) [Mass fraction] 98 % Thad Spencer APRN.SUPERINTENDENT [employer]ERS Work Phone: [facility] 07-21-2023 09:16-0400 Systolic blood pressure 110 mm[Hg] Thad Spencer APRN.SUPERINTENDENT [employer]IVERS Work Phone: [facility] Encounters Encounter Date Encounter Type Care Provider Facility Start: 10-31-2023 End: 11-01-2023 ambulatory [facility] Start: 10-31-2023 End: 10-31-2023 ambulatory [facility] Start: 10-31-2023 End: 10-31-2023 Subsequent hospital visit by physician Crispin Trinidad MD Work Phone: [facility] - [facility] Procedures Date Procedure Procedure Detail Performing Clinician Start: 10-31-2023 C-reactive protein Crispin Trinidad MD Work Phone: Start: 10-31-2023 COMPLETE BLOOD COUNT WITH DIFFERENTIAL Crispin Trinidad MD Work Phone: Start: 10-31-2023 TROPONIN T (5TH GENERATION) Crispin Trinidad MD Work Phone: Start: 10-03-2023 STREP A MOLECULAR (POC) Ginette Salguero APRN.SUPERINTENDENT [employer]IVERS Work Phone: Start: 04-03-2023 Xtrnl ocular photog w/i&r [facility] medical progre Evette Hanna MD Work Phone: Plan of Treatment Date Care Activity Detail Author Start: 06-27-2031 Tetanus Diphtheria and Pertussis Vaccines (7 - Td or Tdap) Tetanus Diphtheria and Pertussis Vaccines (7 - Td or Tdap) [facility] Start: 06-27-2031 Urine microalbumin profile DTaP,Tdap,Td Vaccine (7 - Td or Tdap) [facility] Start: 07-25-2023 FLU (#1) FLU (#1) [facility] Start: 07-25-2023 Influenza vaccination [facility] Start: 11-24-2022 DEPRESSION ASSESSMENT DEPRESSION ASSESSMENT [facility] Start: 06-27-2022 Well Visit Well Visit [facility] Start: 2022 Urine microalbumin profile DTAP,TDAP,TD (1 - Tdap) [facility] Start: 2021 Hearing Screening Hearing Screening [facility] Start: 2021 HEPATITIS C SCREENING HEPATITIS C SCREENING [facility] Start: 2021 HIV SCREENING HIV SCREENING [facility] Start: 2021 PATH Education 18+ Years PATH Education 18+ Years [facility] Start: 2019 MenB (1 of 2 - MenB 2-Dose Series Bexsero) MenB (1 of 2 - MenB 2-Dose Series Bexsero) [facility] Start: 2019 Meningococcal B Vaccine: Consider Based On Risk (1 of 2 - Patient Seeks Protection) Meningococcal B Vaccine: Consider Based On Risk (1 of 2 - Patient Seeks Protection) [facility] Start: 2019 MENINGOCOCCAL B: Consider based on risk (1 of 2 - Patient Seeks Protection) MENINGOCOCCAL B: Consider based on risk (1 of 2 - Patient Seeks Protection) [facility] Start: 2018 PATH Education 15-17+ Years PATH Education 15-17+ Years [facility] Start: 2018 Vision Screening Vision Screening [facility] Start: 2017 PEDS TO ADULT TRANSITION ANNUAL ASSESSMENT PEDS TO ADULT TRANSITION ANNUAL ASSESSMENT [facility] Start: 2015 PATH Education 12-14+ Years PATH Education 12-14+ Years [facility] Start: 2015 PATH Transitional Assessment PATH Transitional Assessment [facility] Start: 2015 PEDS TO ADULT TRANSITION INITIAL DISCUSSION PEDS TO ADULT TRANSITION INITIAL DISCUSSION [facility] Start: 2014 HPV (1 - Male 2-dose series) HPV (1 - Male 2-dose series) [facility] Start: 2014 HPV VACCINE (1 - Male 2-dose series) HPV VACCINE (1 - Male 2-dose series) [facility] Start: 2012 HPV VACCINE (1 - Male 2-dose series) HPV VACCINE (1 - Male 2-dose series) [facility] Start: 2003 COVID-19 (#1) COVID-19 (#1) [facility] Start: 2003 COVID-19 VACCINE (#1) COVID-19 VACCINE (#1) [facility] Start: 2003 HEPATITIS B (1 of 3 - 3-dose series) HEPATITIS B (1 of 3 - 3-dose series) [facility] Immunizations Immunization Date Immunization Notes Care Provider Fa cility 06-27-2021 tetanus toxoid, redu jojo diphtheria toxoid, and acellular pertussis vaccine, adsorbed Crispin Trinidad MD Work Phone: [facility] 02-17-2008 diphtheria, tetanus toxoids and acellular pertussis vaccine Crispin Trinidad MD Work Phone: [facility] 02-17-2008 measles, mumps and rubella virus vaccine Crispin Trinidad MD Work Phone: [facility] 02-17-2008 poliovirus vaccine, inactivated Crispin Trinidad MD Work Phone: [facility] 02-17-2008 varicella virus vaccine Crispin Trinidad MD Work Phone: [facility] 04-20-2004 diphtheria, tetanus toxoids and acellular pertussis vaccine Crispin Trinidad MD Work Phone: [facility] 04-20-2004 haemophilus influenz ae type b vaccine, PRP-T conjugate Crispin Trinidad MD Work Phone: [facility] 01-30-2004 measles, mumps and rubella virus vaccine Crispin Trinidad MD Work Phone: [facility] 01-30-2004 varicella virus vaccine Crispin Trinidad MD Work Phone: [facility] 2003 DTaP-hepatitis B and poliovirus vaccine Crispin Trinidad MD Work Phone: [facility] 2003 haemophilus influenz ae type b vaccine, PRP-T conjugate Crispin Trinidad MD Work Phone: [facility] 2003 pneumococcal conjuga te vaccine, 7 valent Crispin Trinidad MD Work Phone: [facility] 2003 DTaP-hepatitis B and poliovirus vaccine Crispin Trinidad MD Work Phone: [facility] 2003 haemophilus influenz ae type b vaccine, PRP-T conjugate Crispin Trinidad MD Work Phone: [facility] 2003 pneumococcal conjuga te vaccine, 7 valent Crispin Trinidad MD Work Phone: [facility] 2003 DTaP-hepatitis B and poliovirus vaccine Crispin Trinidad MD Work Phone: [facility] 2003 haemophilus influenz ae type b vaccine, PRP-T conjugate Crispin Trinidad MD Work Phone: [facility] 2003 pneumococcal conjuga te vaccine, 7 valent Crispin Trinidad MD Work Phone: [facility] Payers Date Payer Category Payer Medicaid [employer] [id number] 2022-Present [phone] [address] [place] [address] Medicaid [id number] 2022 Medicaid [id number] 2022 Medicaid [id number] 2022 Unknown [facility] [id number] 2022-Present [address] [place] [address] [id number] 2003 Unknown [id number] 2003 Unknown [id number] 2003 Unknown [id number] 2003 Unknown [id number] Social History Date Type Detail Facility Start: 05-17-2022 End: 01-29-2023 Tobacco smoking status NHIS Never smoked tobacco [facility] Start: 05-17-2022 End: 01-29-2023 Tobacco use and exposure Smokeless tobacco non-user [facility] Start: 04-03-2023 End: 10-17-2023 Alcohol intake Lifetime non-drinker (finding) [facility] Start: 12-20-2020 History SDOH Alcohol Frequency 1 [facility] Start: 2003 Sex Assigned At Not on file [facility] Start: 06-27-2021 End: 07-21-2023 History of Social function [facility] Start: 06-27-2021 End: 07-21-2023 Tobacco use panel [facility] National Score (1-10 0), lower number is lower risk 65 [facility] Start: 10-31-2023 Alcohol intake Not Asked [facility] Clinical Notes 01-29-2023 to 10-17-2023 Roro Campbell APRN.CNP - 10/17/2023 8:06 AM Ginette Gil APRN.CNP - 10/03/2023 9:19 AM ESTPatient Maryana Magana II, OD - 07/22/2023 12:24 PM EDT Note Date & Type Note Facility 10-17-2023 Note HNO ID: [id number] Author: Roro Campbell APRN.SUPERINTENDENT [employer]IV[employer] Service: ? Author Type: Nurse Practitioner Type: Progress Notes Filed: 10/17/2023 8:27 AM Note Text: This note was created using NoteWriter. Subjective Madi Hung is a 18 year old male. 18 year old male with no PMH presents with complaints of sinus congestion. Acute onset 6 weeks ago +nasal congestion +sinus pressure +headache +cough Endorses mornings are worst because I can't even breath out of my nose Seen here 10/03/23 Placed on Augmentin. Unsure if it helped or not. Denies that he takes daily allergy or nasal sprays Denies tobacco usage Accompanied by mom. States he is currently without PCP and attempting to establish The history is provided by the patient. No language asst was used. Sinus Problem This is a recurrent problem. The current episode started more than 1 month ago. The problem occurs daily. The problem has been unchanged. Associated symptoms include congestion, coughing and headaches. Pertinent negatives include no abdominal pain, anorexia, arthralgias, change in bowel habit, chest pain, chills, diaphoresis, fatigue, fever, joint swelling, myalgias, nausea, neck pain, numbness, rash, sore throat, swollen glands, urinary symptoms, vertigo, visual change, vomiting or weakness. Nothing aggravates the symptoms. Treatments tried: Augmentin. The treatment provided no relief. PAST MEDICAL HISTORY Diagnosis Date Asthma Family history of eye disorder starrobertodts - brother Jhonatan Gluten intolerance Poor weight gain in child Reflux Seasonal allergies Stargardt's disease PAST SURGICAL HISTORY Procedure Laterality Date NONE ALLERGIES Gluten, Cats, Dogs, and Seasonal Allergies MEDICATIONS cetirizine (ZYRTEC) 10 mg tablet Take 10 mg by mouth as needed. MULTIVITAMIN ORAL Take by mouth. ALBUTEROL INHALATION Inhale as instructed as needed. doxycycline (VIBRA-TABS) 100 mg tablet Take 1 tablet by mouth two times a day for 10 days. fluticasone (FLONASE) 50 mcg/actuation nasal spray Use 2 Sprays in each nostril once daily. Rinse mouth after use. FAMILY HISTORY Problem Relation Age of Onset No Ocular Disease Father No Ocular Disease Mother No Ocular Disease Sister No Ocular Disease Sister No Ocular Disease Sister Inherited Eye Disease Brother color deficient No Ocular Disease Brother Inherited Eye Disease Brother Stargardt's Inherited Eye Disease Maternal Grandfather color vision loss Diabetes Paternal Uncle Blindness Paternal Uncle diabetes related Cataract Half-brother Detached Retina Half-brother Glaucoma Half-brother other (pars planitis) Half-brother other (Cornea Transplant) Half-brother Macular Degen No Family History Amblyopia No Family History Strabismus No Family History Social History Tobacco Use Smoking status: Never Smokeless tobacco: Never Vaping Use Vaping Use: Never used Substance Use Topics Alcohol use: Never Drug use: Never Review of Systems Constitutional: Negative for chills, diaphoresis, fatigue and fever. HENT: Positive for congestion, postnasal drip, sinus pressure and sinus pain. Negative for sore throat. Eyes: Negative for photophobia, pain, discharge, redness and itching. Respiratory: Positive for cough. Negative for apnea, choking and chest tightness. Cardiovascular: Negative for chest pain. Gastrointestinal: Negative for abdominal pain, anorexia, change in bowel habit, diarrhea, nausea and vomiting. Musculoskeletal: Negative for arthralgias, joint swelling, myalgias and neck pain. Skin: Negative for color change, pallor and rash. Allergic/Immunologic: Negative for environmental allergies, food allergies and immunocompromised state. Neurological: Positive for headaches. Negative for dizziness, vertigo, facial asymmetry, weakness and numbness. Hematological: Negative for adenopathy. Does not bruise/bleed easily. Psychiatric/Behavioral: Negative for agitation and behavioral problems. Objective BP 120/76 Pulse 76 Temp 36.4 ?C (97.6 ?F) Resp 21 Wt 74.8 kg (165 lb) SpO2 98% Physical Exam Vitals and nursing note reviewed. Constitutional: General: He is not in acute distress. Appearance: Normal appearance. He is not ill-appearing, toxic-appearing or diaphoretic. HENT: Head: Normocephalic and atraumatic. Comments: +frontal sinus pressure +maxillary sinus pressure Right Ear: External ear normal. Left Ear: External ear normal. Ears: Comments: Right TM erythematous Nose: Congestion present. No rhinorrhea. Mouth/Throat: Mouth: Mucous membranes are moist. Pharynx: Oropharynx is clear. No oropharyngeal exudate or posterior oropharyngeal erythema. Eyes: General: Right eye: No discharge. Left eye: No discharge. Extraocular Movements: Extraocular movements intact. Conjunctiva/sclera: Conjunctivae normal. Pupils: Pupils are equal, round, and reactive to light. (more content not included)... [facility] 10-17-2023 History of Present illness Narrative This note was created using Flashstockriter. Subjective Madi Hung is a 18 year old male. 18 year old male with no PMH presents with complaints of sinus congestion. Acute onset 6 weeks ago +nasal congestion +sinus pressure +headache +cough Endorses mornings are worst because I can't even breath out of my nose Seen here 10/03/23 Placed on Augmentin. Unsure if it helped or not. Denies that he takes daily allergy or nasal sprays Denies tobacco usage Accompanied by mom. States he is currently without PCP and attempting to establish The history is provided by the patient. No language asst was used. Sinus Problem This is a recurrent problem. The current episode started more than 1 month ago. The problem occurs daily. The problem has been unchanged. Associated symptoms include congestion, coughing and headaches. Pertinent negatives include no abdominal pain, anorexia, arthralgias, change in bowel habit, chest pain, chills, diaphoresis, fatigue, fever, joint swelling, myalgias, nausea, neck pain, numbness, rash, sore throat, swollen glands, urinary symptoms, vertigo, visual change, vomiting or weakness. Nothing aggravates the symptoms. Treatments tried: Augmentin. The treatment provided no relief. PAST MEDICAL HISTORY Diagnosis Date Asthma Family history of eye disorder starrobertodts - brother Jhonatan Gluten intolerance Poor weight gain in child Reflux Seasonal allergies Stargardt's disease PAST SURGICAL HISTORY Procedure Laterality Date NONE ALLERGIES Gluten, Cats, Dogs, and Seasonal Allergies MEDICATIONS cetirizine (ZYRTEC) 10 mg tablet Take 10 mg by mouth as needed. MULTIVITAMIN ORAL Take by mouth. ALBUTEROL INHALATION Inhale as instructed as needed. doxycycline (VIBRA-TABS) 100 mg tablet Take 1 tablet by mouth two times a day for 10 days. fluticasone (FLONASE) 50 mcg/actuation nasal spray Use 2 Sprays in each nostril once daily. Rinse mouth after use. FAMILY HISTORY Problem Relation Age of Onset No Ocular Disease Father No Ocular Disease Mother No Ocular Disease Sister No Ocular Disease Sister No Ocular Disease Sister Inherited Eye Disease Brother color deficient No Ocular Disease Brother Inherited Eye Disease Brother Stargardt's Inherited Eye Disease Maternal Grandfather color vision loss Diabetes Paternal Uncle Blindness Paternal Uncle diabetes related Cataract Half-brother Detached Retina Half-brother Glaucoma Half-brother other (pars planitis) Half-brother other (Cornea Transplant) Half-brother Macular Degen No Family History Amblyopia No Family History Strabismus No Family History Social History Tobacco Use Smoking status: Never Smokeless tobacco: Never Vaping Use Vaping Use: Never used Substance Use Topics Alcohol use: Never Drug use: Never Review of Systems Constitutional: Negative for chills, diaphoresis, fatigue and fever. HENT: Positive for congestion, postnasal drip, sinus pressure and sinus pain. Negative for sore throat. Eyes: Negative for photophobia, pain, discharge, redness and itching. Respiratory: Positive for cough. Negative for apnea, choking and chest tightness. Cardiovascular: Negative for chest pain. Gastrointestinal: Negative for abdominal pain, anorexia, change in bowel habit, diarrhea, nausea and vomiting. Musculoskeletal: Negative for arthralgias, joint swelling, myalgias and neck pain. Skin: Negative for color change, pallor and rash. Allergic/Immunologic: Negative for environmental allergies, food allergies and immunocompromised state. Neurological: Positive for headaches. Negative for dizziness, vertigo, facial asymmetry, weakness and numbness. Hematological: Negative for adenopathy. Does not bruise/bleed easily. Psychiatric/Behavioral: Negative for agitation and behavioral problems. Objective BP 120/76 Pulse 76 Temp 36.4 C (97.6 F) Resp 21 Wt 74.8 kg (165 lb) SpO2 98% Physical Exam Vitals and nursing note reviewed. Constitutional: General: He is not in acute distress. Appearance: Normal appearance. He is not ill-appearing, toxic-appearing or diaphoretic. HENT: Head: Normocephalic and atraumatic. Comments: +frontal sinus pressure +maxillary sinus pressure Right Ear: External ear normal. Left Ear: External ear normal. Ears: Comments: Right TM erythematous Nose: Congestion present. No rhinorrhea. Mouth/Throat: Mouth: Mucous membranes are moist. Pharynx: Oropharynx is clear. No oropharyngeal exudate or posterior oropharyngeal erythema. Eyes: General: Right eye: No discharge. Left eye: No discharge. Extraocular Movements: Extraocular movements intact. Conjunctiva/sclera: Conjunctivae normal. Pupils: Pupils are equal, round, and reactive to light. Cardiovascular: Rate and Rhythm: Normal rate and regular rhythm. Pulses: Normal pulses. Heart sounds: Normal heart sounds. No murmur heard. No friction rub. No gallop. Pulmonary: Effort: Pulmonary effort is normal. No respiratory distress. Breath sounds: Normal breath sounds. No stridor. No wheezing, rhonchi or rales. Chest: Chest wall: No tenderness. Abdominal: General: Abdomen is flat. There is no distension. Palpations: Abdomen is soft. There is no mass. Tenderness: There is no abdominal tenderness. There is no guarding or rebound. Hernia: No hernia is present. Musculoskeletal: General: No swelling, tenderness, deformity or signs of injury. Normal range of motion. Cervical back: Normal range of motion and neck supple. No rigidity or tenderness. Right lower leg: No edema. Left lower leg: No edema. Lymphadenopathy: Cervical: No cervical adenopathy. Skin: General: Skin is warm and dry. Capillary Refill: Capillary refill takes less than 2 seconds. Coloration: Skin is not jaundiced or pale. Findings: No bruising, lesion or rash. Neurological: General: No focal deficit present. Mental Status: He is alert and oriented to person, place, and time. Cranial Nerves: No cranial nerve deficit. Sensory: No sensory deficit. Motor: No weakness. Coordination: Coordination normal. Gait: Gait normal. Deep Tendon Reflexes: Reflexes normal. Psychiatric: Mood and Affect: Mood normal. Behavior: Behavior normal. Thought Content: Thought content normal. Assessment and Plan ASSESSMENT/PLAN: 1. Rhinosinusitis - ICD9: 473.9, ICD10: J32.9 X 6 weeks Seen here 10/03/23 RX Augmentin Has not followed up related to lack of PCP, attempting to establish ??? Chronic sinusitis vs failed outpatient Will provide patient with Doxy RX Flonase - The patient should also be given OTC cough and cold meds as needed, warm salt water gargles, throat lozenges and/or OTC throat spray as needed, and nasal saline gtts and suction prn for the first 5-7 days of treatment. - Supportive care with plenty of fluids, rest, and analgesia prn. - Follow up in 3-5 days if symptoms persist or worsen. - Discussed that he may benefit from seeing ENT. Consult placed. Roro Campbell APRN.[employer] documented in this encounter [facility] 10-03-2023 Note HNO ID: [id number] Author: Ginette Salguero APRN.GIRISH Service: ? Author Type: Nurse Practitioner Type: Progress Notes Filed: 10/03/2023 9:33 AM Note Text: CC: Patient presents with: Nasal Congestion: Headache,sinus pressure x 2 weeks HPI: Madi Hung is a 18 year old male who presents to the office with complaint of head congestion and sinus symptoms for 2 weeks. Symptoms are worsening Associated symptoms includes sore throat. Denies fever, ear pain, nausea, vomiting , and diarrhea. Treatments tried include nothing so far. with no relief of symptoms. Sick contacts: unknown. History of asthma, frequent episodes of bronchitis, chronic bronchitis, bronchiectasis or COPD: No Smoker: No Seasonal/environmental allergies: No The ROS is otherwise negative. The patient's pmh, medications, allergies, and past visits are reviewed. PHYSICAL EXAM: BP 117/82 Pulse 85 Temp 36.3 ?C (97.3 ?F) Resp 18 Wt 73.5 kg (162 lb) SpO2 97% General appearance: alert, cooperative, pleasant, in no acute distress Head: Normocephalic Eyes: EOM's intact, conjunctiva pink and moist, no icterus, sclera white, non-injected Ears: Right ear: External ear/canal- Normal, TM - clear with good landmarks. Left ear: External ear/canal- Normal, TM - clear with good landmarks Oropharynx:moderate erythema, without exudates present, palatal petechiae Heart: Negative. RRR without obvious murmur, gallop, or rubs. No ectopy. Lungs: clear to auscultation, without rales or wheeze, good air exchange PAST MEDICAL HISTORY Diagnosis Date Asthma Family history of eye disorder stargardts - brother Jhonatan Gluten intolerance Poor weight gain in child Reflux Seasonal allergies Stargardt's disease PAST SURGICAL HISTORY Procedure Laterality Date NONE ALLERGIES Gluten, Cats, Dogs, and Seasonal Allergies MEDICATIONS cetirizine (ZYRTEC) 10 mg tablet Take 10 mg by mouth as needed. MULTIVITAMIN ORAL Take by mouth. ALBUTEROL INHALATION Inhale as instructed as needed. FAMILY HISTORY Problem Relation Age of Onset No Ocular Disease Father No Ocular Disease Mother No Ocular Disease Sister No Ocular Disease Sister No Ocular Disease Sister Inherited Eye Disease Brother color deficient No Ocular Disease Brother Inherited Eye Disease Brother Stargardt's Inherited Eye Disease Maternal Grandfather color vision loss Diabetes Paternal Uncle Blindness Paternal Uncle diabetes related Cataract Half-brother Detached Retina Half-brother Glaucoma Half-brother other (pars planitis) Half-brother other (Cornea Transplant) Half-brother Macular Degen No Family History Amblyopia No Family History Strabismus No Family History Social History Tobacco Use Smoking status: Never Smokeless tobacco: Never Vaping Use Vaping Use: Never used Substance Use Topics Alcohol use: Never Drug use: Never ASSESSMENT/PLAN: 1. Sore throat - ICD9: 462, ICD10: J02.9 (primary diagnosis) - STREP A MOLECULAR (POC) - neg 2. Rhinosinusitis - ICD9: 473.9, ICD10: J32.9 - AMOXICILLIN 875 MG-POTASSIUM CLAVULANATE 125 MG TABLET Prescription instructions reviewed with patient as applicable. Potential red flag symptoms discussed with the patient. Reviewed appropriate action plan to take if red flag symptoms occur. Patient agreeable to treatment plan. Ginette Salguero APRN.[facility] 10-03-2023 History of Present illness Narrative CC: Patient presents with: Nasal Congestion: Headache,sinus pressure x 2 weeks HPI: Madi Hung is a 18 year old male who presents to the office with complaint of head congestion and sinus symptoms for 2 weeks. Symptoms are worsening Associated symptoms includes sore throat. Denies fever, ear pain, nausea, vomiting , and diarrhea. Treatments tried include nothing so far. with no relief of symptoms. Sick contacts: unknown. History of asthma, frequent episodes of bronchitis, chronic bronchitis, bronchiectasis or COPD: No Smoker: No Seasonal/environmental allergies: No The ROS is otherwise negative. The patient's pmh, medications, allergies, and past visits are reviewed. PHYSICAL EXAM: BP 117/82 Pulse 85 Temp 36.3 C (97.3 F) Resp 18 Wt 73.5 kg (162 lb) SpO2 97% General appearance: alert, cooperative, pleasant, in no acute distress Head: Normocephalic Eyes: EOM's intact, conjunctiva pink and moist, no icterus, sclera white, non-injected Ears: Right ear: External ear/canal- Normal, TM - clear with good landmarks. Left ear: External ear/canal- Normal, TM - clear with good landmarks Oropharynx:moderate erythema, without exudates present, palatal petechiae Heart: Negative. RRR without obvious murmur, gallop, or rubs. No ectopy. Lungs: clear to auscultation, without rales or wheeze, good air exchange PAST MEDICAL HISTORY Diagnosis Date Asthma Family history of eye disorder reubendts - brother Jhonatan Gluten intolerance Poor weight gain in child Reflux Seasonal allergies Stargardt's disease PAST SURGICAL HISTORY Procedure Laterality Date NONE ALLERGIES Gluten, Cats, Dogs, and Seasonal Allergies MEDICATIONS cetirizine (ZYRTEC) 10 mg tablet Take 10 mg by mouth as needed. MULTIVITAMIN ORAL Take by mouth. ALBUTEROL INHALATION Inhale as instructed as needed. FAMILY HISTORY Problem Relation Age of Onset No Ocular Disease Father No Ocular Disease Mother No Ocular Disease Sister No Ocular Disease Sister No Ocular Disease Sister Inherited Eye Disease Brother color deficient No Ocular Disease Brother Inherited Eye Disease Brother Stargardt's Inherited Eye Disease Maternal Grandfather color vision loss Diabetes Paternal Uncle Blindness Paternal Uncle diabetes related Cataract Half-brother Detached Retina Half-brother Glaucoma Half-brother other (pars planitis) Half-brother other (Cornea Transplant) Half-brother Macular Degen No Family History Amblyopia No Family History Strabismus No Family History Social History Tobacco Use Smoking status: Never Smokeless tobacco: Never Vaping Use Vaping Use: Never used Substance Use Topics Alcohol use: Never Drug use: Never ASSESSMENT/PLAN: 1. Sore throat - ICD9: 462, ICD10: J02.9 (primary diagnosis) - STREP A MOLECULAR (POC) - neg 2. Rhinosinusitis - ICD9: 473.9, ICD10: J32.9 - AMOXICILLIN 875 MG-POTASSIUM CLAVULANATE 125 MG TABLET Prescription instructions reviewed with patient as applicable. Potential red flag symptoms discussed with the patient. Reviewed appropriate action plan to take if red flag symptoms occur. Patient agreeable to treatment plan. Ginette Salguero APRN.GIRISH documented in this encounter [facility] 07-22-2023 Note HNO ID: [id number] Author: Maryana Roberts II, OD Service: ? Author Type: INCOME TAX RETURN PREPARER Type: Progress Notes Filed: 07/22/2023 12:28 PM Note Text: Assessment and Plan H10.32 Acute bacterial conjunctivitis of left eye (primary encounter diagnosis) Comment: Removed pseudomembrane from lower tarsal plate with sponge roque. Start use of TobraDex suspension 1 gt both eyes four times a day x 1 week. Recheck as needed. Instruct patient to immediately report any change in condition outside of expected and discussed symptoms. I have confirmed and edited as necessary the relevant ophthalmic history, ROS, and the neuro exam findings as obtained by others. I have seen and examined Madi Hung. I have discussed the case and the management of this patient's care with the Resident/Fellow, if applicable. I also have reviewed and agree with the assessment and plan as stated above and agree with all of its relevant components. Maryana Roberts II, OD [facility] 07-22-2023 Instructions Maryana Roberts II, OD - 07/22/2023 12:27 PM EDT Assessment and Plan H10.32 Acute bacterial conjunctivitis of left eye (primary encounter diagnosis) Comment: Removed pseudomembrane from lower tarsal plate with sponge roque. Start use of TobraDex suspension 1 gt both eyes four times a day x 1 week. Recheck as needed. Instruct patient to immediately report any change in condition outside of expected and discussed symptoms. I have confirmed and edited as necessary the relevant ophthalmic history, ROS, and the neuro exam findings as obtained by others. I have seen and examined Madi Hung. I have discussed the case and the management of this patient's care with the Resident/Fellow, if applicable. I also have reviewed and agree with the assessment and plan as stated above and agree with all of its relevant components. Maryana Roberts II, OD documented in this encounter [facility] 07-22-2023 History of Present illness Narrative Assessment and Plan H10.32 Acute bacterial conjunctivitis of left eye (primary encounter diagnosis) Comment: Removed pseudomembrane from lower tarsal plate with sponge roque. Start use of TobraDex suspension 1 gt both eyes four times a day x 1 week. Recheck as needed. Instruct patient to immediately report any change in condition outside of expected and discussed symptoms. I have confirmed and edited as necessary the relevant ophthalmic history, ROS, and the neuro exam findings as obtained by others. I have seen and examined Madi Hung. I have discussed the case and the management of this patient's care with the Resident/Fellow, if applicable. I also have reviewed and agree with the assessment and plan as stated above and agree with all of its relevant components. Maryana Roberts II, OD documented in this encounter [facility] 07-21-2023 Note HNO ID: [id number] Author: Thad Spencer APRN.[employer] Service: ? Author Type: Nurse Practitioner Type: Progress Notes Filed: 07/21/2023 10:39 AM Note Text: Subjective HPI HPI Madi Hung is a 18 year old male who presents today for CC of left eye redness, drainage. This started 2 days ago. Has tried allergy eye drops for relief. Symptoms are worsened by nothing. Risk factors hx of seasonal allergies. Denies eye injury. Blurred vision with drainage. .Patient presents with: Eye Problem: left red and drainage x 2 days, nasal congestion PAST MEDICAL HISTORY Diagnosis Date Asthma Family history of eye disorder stargardts - brother Jhonatan Gluten intolerance Poor weight gain in child Reflux Seasonal allergies Stargardt's disease PAST SURGICAL HISTORY Procedure Laterality Date NONE ALLERGIES Gluten, Cats, Dogs, and Seasonal Allergies MEDICATIONS cetirizine (ZYRTEC) 10 mg tablet Take 10 mg by mouth as needed. MULTIVITAMIN ORAL Take by mouth. ALBUTEROL INHALATION Inhale as instructed as needed. trimethoprim-polymyxin (POLYTRIM) 10,000 unit- 1 mg/mL ophthalmic solution Use 1 Drop in the left eye four times daily for 7 days. FAMILY HISTORY Problem Relation Age of Onset No Ocular Disease Father No Ocular Disease Mother No Ocular Disease Sister No Ocular Disease Sister No Ocular Disease Sister Inherited Eye Disease Brother color deficient No Ocular Disease Brother Inherited Eye Disease Brother Stargardt's Inherited Eye Disease Maternal Grandfather color vision loss Diabetes Paternal Uncle Blindness Paternal Uncle diabetes related Cataract Half-brother Detached Retina Half-brother Glaucoma Half-brother other (pars planitis) Half-brother other (Cornea Transplant) Half-brother Macular Degen No Family History Amblyopia No Family History Strabismus No Family History Social History Tobacco Use Smoking status: Never Smokeless tobacco: Never Vaping Use Vaping Use: Never used Substance Use Topics Alcohol use: Never Drug use: Never Review of Systems Constitutional: Negative for chills and fever. HENT: Negative for ear discharge, ear pain and sore throat. Eyes: Positive for discharge and redness. Negative for blurred vision, double vision, photophobia and pain. Neurological: Negative for headaches. Objective Blood pressure 110/64, pulse 72, temperature 36.4 ?C (97.5 ?F), resp. rate 16, weight 70.8 kg (156 lb), SpO2 98 %. Physical Exam Constitutional: General: He is not in acute distress. Appearance: He is not toxic-appearing. HENT: Right Ear: Hearing, tympanic membrane and external ear normal. Left Ear: Hearing, tympanic membrane, ear canal and external ear normal. Nose: No mucosal edema. Mouth/Throat: Pharynx: Uvula midline. Eyes: General: Lids are normal. Right eye: No discharge. Left eye: No discharge. Conjunctiva/sclera: Right eye: Right conjunctiva is not injected. Left eye: Left conjunctiva is injected. Chemosis present. Lymphadenopathy: Cervical: Right cervical: No superficial cervical adenopathy. Left cervical: No superficial cervical adenopathy. Comments: No cervical lymphadenopathy bilaterally Neurological: Mental Status: He is oriented to person, place, and time. ASSESSMENT/PLAN: 1. Acute conjunctivitis of left eye, unspecified acute conjunctivitis type - ICD9: 372.00, ICD10: H10.32 - see medication orders - course and contagiousness issues discussed, including hand washing. - Instructed to call if high fever, development of periorbital redness or swelling, eye pain, visual changes, concerns or if symptoms persist. - POLYMYXIN B SULFATE 10,000 UNIT-TRIMETHOPRIM 1 MG/ML EYE DROPS Thad Spencer APRN.[facility] 07-21-2023 History of Present illness Narrative Subjective HPI HPI Madi Hung is a 18 year old male who presents today for CC of left eye redness, drainage. This started 2 days ago. Has tried allergy eye drops for relief. Symptoms are worsened by nothing. Risk factors hx of seasonal allergies. Denies eye injury. Blurred vision with drainage. .Patient presents with: Eye Problem: left red and drainage x 2 days, nasal congestion PAST MEDICAL HISTORY Diagnosis Date Asthma Family history of eye disorder kavons - brother Jhonatan Gluten intolerance Poor weight gain in child Reflux Seasonal allergies Stargardt's disease PAST SURGICAL HISTORY Procedure Laterality Date NONE ALLERGIES Gluten, Cats, Dogs, and Seasonal Allergies MEDICATIONS cetirizine (ZYRTEC) 10 mg tablet Take 10 mg by mouth as needed. MULTIVITAMIN ORAL Take by mouth. ALBUTEROL INHALATION Inhale as instructed as needed. trimethoprim-polymyxin (POLYTRIM) 10,000 unit- 1 mg/mL ophthalmic solution Use 1 Drop in the left eye four times daily for 7 days. FAMILY HISTORY Problem Relation Age of Onset No Ocular Disease Father No Ocular Disease Mother No Ocular Disease Sister No Ocular Disease Sister No Ocular Disease Sister Inherited Eye Disease Brother color deficient No Ocular Disease Brother Inherited Eye Disease Brother Stargardt's Inherited Eye Disease Maternal Grandfather color vision loss Diabetes Paternal Uncle Blindness Paternal Uncle diabetes related Cataract Half-brother Detached Retina Half-brother Glaucoma Half-brother other (pars planitis) Half-brother other (Cornea Transplant) Half-brother Macular Degen No Family History Amblyopia No Family History Strabismus No Family History Social History Tobacco Use Smoking status: Never Smokeless tobacco: Never Vaping Use Vaping Use: Never used Substance Use Topics Alcohol use: Never Drug use: Never Review of Systems Constitutional: Negative for chills and fever. HENT: Negative for ear discharge, ear pain and sore throat. Eyes: Positive for discharge and redness. Negative for blurred vision, double vision, photophobia and pain. Neurological: Negative for headaches. Objective Blood pressure 110/64, pulse 72, temperature 36.4 C (97.5 F), resp. rate 16, weight 70.8 kg (156 lb), SpO2 98 %. Physical Exam Constitutional: General: He is not in acute distress. Appearance: He is not toxic-appearing. HENT: Right Ear: Hearing, tympanic membrane and external ear normal. Left Ear: Hearing, tympanic membrane, ear canal and external ear normal. Nose: No mucosal edema. Mouth/Throat: Pharynx: Uvula midline. Eyes: General: Lids are normal. Right eye: No discharge. Left eye: No discharge. Conjunctiva/sclera: Right eye: Right conjunctiva is not injected. Left eye: Left conjunctiva is injected. Chemosis present. Lymphadenopathy: Cervical: Right cervical: No superficial cervical adenopathy. Left cervical: No superficial cervical adenopathy. Comments: No cervical lymphadenopathy bilaterally Neurological: Mental Status: He is oriented to person, place, and time. ASSESSMENT/PLAN: 1. Acute conjunctivitis of left eye, unspecified acute conjunctivitis type - ICD9: 372.00, ICD10: H10.32 - see medication orders - course and contagiousness issues discussed, including hand washing. - Instructed to call if high fever, development of periorbital redness or swelling, eye pain, visual changes, concerns or if symptoms persist. - POLYMYXIN B SULFATE 10,000 UNIT-TRIMETHOPRIM 1 MG/ML EYE DROPS Thad Spencer APRN.[employer] documented in this encounter [facility] 04-03-2023 Note HNO ID: [id number] Author: Shaneka Tong MD Service: ? 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 - FAF: stable hypoAF OU - f/u with Dr Lobo Plan Slit lamp photos today Discussed excision vs observation Patient can call to schedule surgery when ready Otherwise f/u 1 year I have confirmed and edited as necessary the relevant ophthalmic history, ROS, and the neuro exam findings as obtained by others. I have seen and examined this patient. I have discussed the case and the management of this patient's care with the Resident/Fellow, if applicable. I also have reviewed and agree with the assessment and plan as stated above and agree with all of its relevant components. 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 - FAF: stable hypoAF OU - f/u with Dr Lobo Plan Slit lamp photos today Discussed excision vs observation Patient can call to schedule surgery when ready Otherwise f/u 1 year I have confirmed and edited as necessary the relevant ophthalmic history, ROS, and the neuro exam findings as obtained by others. I have seen and examined this patient. I have discussed the case and the management of this patient's care with the Resident/Fellow, if applicable. I also have reviewed and agree with the assessment and plan as stated above and agree with all of its relevant components. Shaneka Tong MD April 03, 2023 2:00 PM documented in this encounter [facility] 01-29-2023 Note HNO ID: [id number] Author: Radha Lobo I, MD Service: ? 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 FAF today: stable hypoAF OU Exam otherwise stable VA remains stable Will proceed with repeat genetic testing to see if the other allele mutations could be identified. Plan: Return one year Conjunctival lesion, left eye Probably small amelanotic nevus temporally Monitor F/U with Dr. Shaneka Tong I have confirmed and edited as necessary the relevant ophthalmic history, ROS, and the neuro exam findings as obtained by others. I have seen and examined this patient. I have discussed the case and the management of this patient's care with the Resident/Fellow, if applicable. I also have reviewed and agree with the assessment and plan as stated above and agree with all of its relevant components. Radha Lobo MD January 31, 2023 4:32 AM [facility] Diagnosis Stargardt's disease- Primary Other dystrophies primarily involving the sensory retina documented in this encounter [facility] note* Diagnosis Acute conjunctivitis of left eye, unspecified acute conjunctivitis type- Primary documented in this encounter [facility] note* Diagnosis Acute bacterial conjunctivitis of left eye- Primary documented in this encounter [facility] note* Diagnosis Sore throat- Primary Acute pharyngitis Rhinosinusitis Unspecified sinusitis (chronic) documented in this encounter [facility] note* Diagnosis Rhinosinusitis- Primary Unspecified sinusitis (chronic) documented in this encounter [facility] note* Diagnosis Other chest pain documented in this encounter [facility] Reason for Referral Specialty Diagnoses / Procedures Referred By Sudhir chandler Referred To Contact Diagnoses Stargardt's disease Procedures CONSULT TO OPHTHALMIC GENETIC COUNSELING MEDICAL GENETICS COUNSELING EACH 30 MINUTES Radha Lobo I, MD [address] [address] [address] Referral ID Status Reason Start Date Expiration Date Visits Requested Visits Authorized [id number] Authorized PCP Requested Referral Auto-Generate d Referral 04/03/2023 04/02/2024 1 1 Specialty Diagnoses / Procedures Referred By Sudhir chandler Referred To Contact Ent - Otolaryngology Diagnoses Rhinosinusitis Procedures [facility]SULT TO [facility] 60-74 MINUTES Roro Campbell, LUIS.[employer] [address] [place] [address] Referral ID Status Reason Start Date Expiration Date Visits Requested Visits Authorized [id number] Authorized PCP Requested Referral 3 10/16/2024 1 1 Medications Administered Section Active Administered Medications - up to 3 most recent administrations Medication Order MAR Action Action Date Dose Rate Site fluorescein-benoxinate 0.25-0.4 % 1 Drop (FLURESS) 1 Drop, BOTH EYES, DIRECTED, Starting on Fri07/22/23 at 1230, Until Fri07/23/23 at 0029, Administer for applanation tonometry. In the event of a Fluress shortage, administer Rosalia-Fluor 1 drop into both eyes as directed for applanation tonometry Given 07/22/2023 12:30 PM EDT 1 Drop Inactive Administered Medications - up to 3 most recent administrations Medication Order MAR Action Action Date Dose Rate Site lidocaine (PF) 3.5 % 1 Drop (AKTEN) 1 Drop, LEFT EYE, ONCE, 1 dose, On Fri07/22/23 at 1230, For the eye Given 07/22/2023 12:30 PM EDT 1 Drop Summary Purpose Family History No Family History Records FoundNo Family History Records Found Advance Directives No Advanced Directives Records FoundNo Advanced Directives Records Found Additional Source Comments Source Comments (unrecognize d section and content) In the event this informatio n is protected by the Federal Confidentiality of Alcohol and Drug Abuse Patient Records regulations: The Federal rules restrict any use of the information to criminally investigate or prosecute any alcohol or drug abuse patient.[facility] the event this information is protected by the Federal Confidentiality of Alcohol and Drug Abuse Patient Records regulations: The Federal rules restrict any use of the information to criminally investigate or prosecute any alcohol or drug abuse patient.[facility] the event this information is protected by the Federal Confidentiality of Alcohol and Drug Abuse Patient Records regulations: The Federal rules restrict any use of the information to criminally investigate or prosecute any alcohol or drug abuse patient.[facility] the event this information is protected by the Federal Confidentiality of Alcohol and Drug Abuse Patient Records regulations: The Federal rules restrict any use of the information to criminally investigate or prosecute any alcohol or drug abuse patient.[facility] the event this information is protected by the Federal Confidentiality of Alcohol and Drug Abuse Patient Records regulations: The Federal rules restrict any use of the information to criminally investigate or prosecute any alcohol or drug abuse patient.[facility] the event this information is protected by the Federal Confidentiality of Alcohol and Drug Abuse Patient Records regulations: The Federal rules restrict any use of the information to criminally investigate or prosecute any alcohol or drug abuse patient.[facility] Reason for Visit (unrecogniz ed section and content) Reason Comments Eye Problem left red and drainag e x 2 days, nasal congestion Reason Comments Acute conjunctivitis of left eye Reason Comments Nasal Congestion Headache,sinus press ure x 2 weeks Reason Comments Sinus Problem Sinus congestion x 6 weeks Care Teams (unrecognized sec tion and content) [employer] Relationship Specialty Start Date End Date Hasmukh Garcia PCP - General 12/28/08 [employer] Relationship Specialty Start Date End Date Hasmukh Garcia PCP - General 12/28/08 [employer] Relationship Specialty Start Date End Date Hasmukh Garcia PCP - General 12/28/08 [employer] Relationship Specialty Start Date End Date Hasmukh Garcia MD PCP - General 12/28/08 [employer] Relationship Specialty Start Date End Date Hasmukh Garcia MD PCP - General 12/28/08 [employer] Relationship Specialty Start Date End Date Crispin Trinidad MD PCP - General Pediatrics 08/09/16 (unrecognized sect ion and content) No Status Records FoundNo Status Records Found INFORMATION SOURCE (unrecogn ized section and content) DATE CREATED AUTHOR AUTHOR'S ORGANIZ ATION 11/08/2023 [facility] FOR RECORDS PERTAINING TO PATIENTS WHO ARE OR HAVE BEEN ENROLLED IN A CHEMICAL DEPENDENCY/SUBSTANCEABUSE PROGRAM, SOME INFORMATION MAY BE OMITTED. This clinical summary was aggregated from multiple sources. Caution should be exercised in using it in the provision of clinical care. This summary normalizes information from multiple sources, and as a consequence, information in this document may materially change the coding, format and clinical context of patient data. In addition, data may be omitted in some cases. CLINICAL DECISIONS SHOULD BE BASED ON THE PRIMARY CLINICAL RECORDS. [facility]. provides no warranty or guarantee of the accuracy or completeness of information in this document.
== END 2024-02-08 15:06 | disposition home or self-care (01) ==
LOC: ED 14:35
PROVIDERS: Emergency Provider Emergency Medicine; PCP Family Medicine; Visit Provider Emergency Medicine
DX: S01.112A Laceration without foreign body of left eyelid and periocular area, initial encounter (principal); W51.XXXA Accidental striking against or bumped into by another person, initial encounter; Y93.67 Activity, basketball
CPT/HCPCS: 12011; 99282

== ENCOUNTER 2024-10-01 09:42 | Emergency (ER) | payer SELFPAY ==
[2024-10-01 09:42] VITALS: BP 133/52; PULSE 85; RESP 16; TEMP 36.6; O2SAT 100; BMI 22.6
[2024-10-01 10:25] LABS: Absolute Lymphocyte Count 0.83 X10^3/uL (0.83-4.51); Absolute Neutrophil Count 9.6 X10^3/uL (2.0-7.7); Basophil# 0.02 X10^3/uL; Basophil% 0.2 % (0-1); Eosinophil# 0.03 X10^3/uL; Eosinophils% 0.3 % (0-5); Hematocrit 44.5 % (40-54); Hemoglobin 15.2 g/dL (13.0-16.5); Lymphocyte # 0.83 X10^3/ul (0.83-4.51); Lymphocyte % 7.6 % (19-41); Mean Corp Hgb Conc 34.2 g/dL (32-36); Mean Corpuscular Hgb 30.1 pg (27.0-32.0); Mean Corpuscular Volume 88.1 fL (80-94); Mean Platelet Vol. 9.6 fl (6.2-12.0); Monocyte# 0.38 X10^3/uL; Monocyte% 3.5 % (0-10); NRBC Flagged by Analyzer 0 % (0-5); Neutrophil # 9.64 X10^3/uL (2.7-7.7); Neutrophil % 88.1 % (47-70); Platelet Count 305 K/mm3 (150-450); RBC Distribution Width CV 13.3 % (11.6-14.6); RBC Distribution Width SD 42.9 fl (35.1-43.9); Red Blood Count 5.05 M/mm3 (4.6-6.2); White Blood Count 10.9 K/mm3 (4.4-11.0)
[2024-10-01] MEDS: dexAMETHasone 4 MG/ML Vial IV (10:39)
[2024-10-01] MEDS: Metoclopramide 10 MG/2 ML Vial 5 MG IV (10:39)
[2024-10-01] MEDS: Acetaminophen 325 MG Tablet 650 MG PO (10:39)
[2024-10-01 10:44] LABS: Internal QC Validated? YES +Cl - CLEAR BKGD; Monotest Negative (Negative); Record Kit Lot#, Mono 13241033
[2024-10-01 10:54] LABS: Anion Gap 4 (5-15); BUN 26 mg/dL (7-18); BUN/Creat Ratio 27.7 RATIO (10-20); Calcium,Total 9.2 mg/dL (8.5-10.1); Chloride 109 mmol/L (98-107); Creatinine, Serum 0.94 mg/dL (0.70-1.30); EST Glomerular Filtration Rate 107 mL/min (>60); Est Glom Filt Rate - Afr Amer 130 mL/min (>60); Glucose 105 mg/dL (74-106); Potassium 4.2 mmol/L (3.5-5.1); Sodium Level 137 mmol/L (136-145); Troponin-I HS < 3 pg/mL (3.0-78.0)
[2024-10-01 11:42] VITALS: BP 132/76; PULSE 64; RESP 18; O2SAT 98
[2024-10-01 11:54] VITALS: BP 124/61; PULSE 64; RESP 18; TEMP 36.9; O2SAT 99
== END 2024-10-01 11:54 | disposition home or self-care (01) ==
PROVIDERS: Emergency Provider Emergency Medicine; PCP Family Medicine; Visit Provider Emergency Medicine
DX: R51.9 Headache, unspecified (principal); R53.83 Other fatigue; R00.2 Palpitations; R11.2 Nausea with vomiting, unspecified; J45.909 Unspecified asthma, uncomplicated; R05.3 Chronic cough
CPT/HCPCS: 70450; 71046; 80048; 84484; 85025; 86308; 87631; 93005; 96374; 96375; 99284

== ENCOUNTER → 2024-10-07 | Outpatient (CLI) | payer MEDICAID, SELFPAY | END | disposition home or self-care (01) | LOC: MFPLAB 16:19 | PROVIDERS: PCP Family Medicine; Referring Provider Family Medicine; Visit Provider Family Medicine | DX: R00.2 Palpitations (principal) | CPT/HCPCS: 36415; 84443 ==